=== PATIENT | male | born 2000 | race African-American/Black ===

== ENCOUNTER 2020-08-24 06:47 | Emergency (ER) | payer BC, SELFPAY ==
--- NOTE | ~2020-08-24 | XR_ITS ---
EXAMINATION: XR chest 1V portable DATE: 08/24/2020 07:34 INDICATION: Cough. TECHNIQUE: A single frontal view of the chest was obtained on 2 radiographs. COMPARISON: Chest 2 views 04/02/2019 FINDINGS: The chest demonstrates clear lungs without pneumonia, pleural effusion, or pneumothorax. Th e heart size is normal. IMPRESSION: 1. No acute cardiopulmonary disease. Reviewed, dictated and finalized at location [facility]
[2020-08-24 06:51] VITALS: BP 115/76; PULSE 96; RESP 16; TEMP 36.9; O2SAT 96
[2020-08-24 06:56] VITALS: O2SAT 99
--- NOTE | 2020-08-24 07:32 | ED.URI ---
HPI - URI/Sore Throat General Chief Complaint: Upper Respiratory Infection Stated Complaint: cough and sore throat Time Seen by Provider: 08/24/20 06:58 Source: patient Mode of arrival: ambulatory Limitations: no limitations History of Present Illness HPI Narrative: This is a 19 year old male who presents for evaluation of URI symptoms. He states he developed a sore throat 1 day ago. He has pain with swallowing. He also reports a productive cough with yellow sputum. He has also noticed clear nasal drainage and pain across his chest only when he coughs. He denies fever, chills, sob, nausea, vomiting or diarrhea. He has not taken any medication. He denies sick contacts. MD elicited complaint: cough Onset (ago): day(s) (1) Description of mucous: yellow Able to tolerate fluids by mouth: Yes Treatments prior to arrival: none Related Data Home Medications Medication Instructions Recorded Confirmed No Home Medications 08/24/20 Allergies Allergy/AdvReac Type Severity Reaction Status Date / Time No Known Allergies Allergy Verified 08/24/20 07:26 Review of Systems Review of Systems: All systems reviewed & are unremarkable except as noted in HPI and below Constitutional: Constitutional: Denies chills and Denies fever(s) ENT: Reports nasal congestion and Reports sore throat Cardiovascular: Cardiovascular: Reports chest pain (only when he coughs) and Denies radiating jaw, neck or arm pain Respiratory: Respiratory: Reports cough and Denies dyspnea Gastrointestinal: Gastrointestinal: Denies abdominal pain, Denies diarrhea, Denies nausea and Denies vomiting PMFSH Past Medical History Medical History (Updated 08/24/20 @ 07:59 by Argentina Vega MD) Patient denies medical problems Surgical History Surgical History (Updated 08/24/20 @ 07:33 by Argentina Vega MD) History of tonsillectomy Social History Social History (Updated 08/24/20 @ 07:34 by Argentina Vega MD) Smoking status: Never smoker Substance use type: marijuana Exam Narrative: Exam Narrative: GENERAL: Well-appearing, well-nourished, and in no acute distress. HEAD: Normocephalic, atraumatic EYES: PERRLA and EOMI, conjunctiva clear without discharge EARS: TM's clear bilaterally without erythema or dullness NOSE: Nares clear, no rhinorrhea or epistaxis THROAT:Mucous membranes moist, Oropharynx normal without erythema, exudate, peritonsillar swelling or fluctuance NECK: Supple, without lymphadenopathy or mass RESPIRATORY: No respiratory distress, Airway patent, Respirations non-labored, Clear to auscultation without rales, rhonchi or wheeze HEART: Regular rate and rhythm. No murmur heard. Normal peripheral pulses. ABDOMEN: Soft, nontender, nondistended, normal active bowel sounds. No masses. No rebound or guarding, No organomegaly. EXTREMITIES: No edema, normal strength with full range of motion. SKIN: Warm, dry, normal color without rash NEURO: Alert and oriented x3. CN 2-12 grossly intact. No focal deficits. PSYCH: Normal mood and affect. Course Reevaluation(s) Reevaluation #1: I discussed with patient test are unremarkable at this point. I discussed signs to look for to return. If has been swabbed for COVID so he understands he will need to quarantine. Date: 08/24/20 Time: 07:56 Vital Signs Vital signs: Vital Signs Temperature 98.5 F 08/24/20 06:51 Pulse Rate 96 08/24/20 06:51 Respiratory Rate 16 08/24/20 06:51 Blood Pressure 115/76 08/24/20 06:51 Pulse Oximetry 96 08/24/20 06:51 Temperature 98.5 F 08/24/20 06:51 Pulse Rate 87 08/24/20 08:03 Respiratory Rate 18 08/24/20 08:03 Blood Pressure 121/69 08/24/20 08:03 Pulse Oximetry 98 08/24/20 08:03 MDM - URI/Sore Throat Lab Data Labs: Lab Results 08/24/20 Range/Units 07:36 SARS-CoV-2 RNA (RT-PCR) Pending Influenza A Screen Negative
[2020-08-24 08:03] VITALS: BP 121/69; PULSE 87; RESP 18; O2SAT 98
[2020-08-24 19:08] LABS: SARS-CoV-2 RNA PCR Negative
== END 2020-08-24 08:05 | disposition home or self-care (01) ==
PROVIDERS: Emergency Provider General Practice; PCP Family Medicine
DX: J06.9 Acute upper respiratory infection, unspecified (principal); Z20.822 Contact with and (suspected) exposure to COVID-19
CPT/HCPCS: 71045; 87081; 87804; 87880; 99283; C9803; U0003; U0005

== ENCOUNTER 2021-06-15 00:52 | Emergency (ER) | payer BC, SELFPAY ==
[2021-06-15] VITALS (7 sets, daily range): BP systolic 120–134; BP diastolic 57–89; PULSE 78–84; RESP 18; TEMP 37.1; O2SAT 97–99
--- NOTE | 2021-06-15 03:44 | ED.GENADULT ---
HPI - General Adult General Chief complaint: Unspecified Stated complaint: chills, bodyaches, vomiting Time Seen by Provider: 06/15/21 03:35 Source: patient Mode of arrival: ambulatory Limitations: no limitations History of Present Illness HPI narrative: Patient is a 20-year-old male complaining of body aches, nausea, nasal congestion, sore throat, headache that started today. Patient denies any fever, chest pain, shortness of breath, abdominal pain, diarrhea or rash. Patient denies being vaccinated from Covid. Patient denies any sick contacts. Related Data Home Medications Medication Instructions Recorded Confirmed No Home Medications 06/15/21 06/15/21 Allergies Allergy/AdvReac Type Severity Reaction Status Date / Time No Known Allergies Allergy Verified 06/15/21 03:35 Review of Systems Review of Systems: All systems reviewed & are unremarkable except as noted in HPI and below Constitutional: Constitutional: Denies chills, Denies excessive sweating, Denies fatigue, Denies fever(s), Denies headache(s), Denies lethargy, Denies malaise, Denies weakness and Denies weight loss Eyes: Eyes: Denies blurry vision, Denies change in vision and Denies loss of vision ENT: Denies dizziness, Denies ear discharge, Denies headache(s), Denies lip swelling, Denies epistaxis, Denies neck pain, Denies throat swelling and Denies tongue swelling Cardiovascular: Cardiovascular: Denies chest pain, Denies chest pain at rest, Denies chest pain with activity, Denies diaphoresis, Denies rapid heart rate, Denies edema, Denies irregular heart rhythm, Denies lightheadedness, Denies palpitations, Denies dyspnea and Denies dyspnea on exertion Respiratory: Respiratory: Denies chest congestion, Denies hemoptysis, Denies dyspnea and Denies dyspnea on exertion Gastrointestinal: Gastrointestinal: Denies abdominal pain, Denies melena, Denies hematochezia, Denies diarrhea, Denies nausea, Denies vomiting and Denies hematemesis Musculoskeletal: Musculoskeletal: Denies abnormal gait, Denies deformity, Denies joint swelling, Denies limited range of motion, Denies neck pain and Denies numbness Neurologic: Denies Abnormal speech present, Denies abnormal gait, Denies confusion, Denies dizziness, Denies focal weakness, Denies loss of vision, Denies numbness, Denies Other visual disturbances, Denies Sensory deficit (Neuro) and Denies weakness Psychiatric: Psychiatric: Denies confusion, Denies depression, Denies auditory hallucinations, Denies homicidal ideation and Denies suicidal ideation Endocrine: Endocrine: Denies cold intolerance, Denies excessive sweating, Denies fatigue, Denies heat intolerance and Denies palpitations Hematologic/Lymphatic: Hematologic/Lymphatic: Denies easy bleeding and Denies easy bruising Allergic/Immunologic: Allergic/Immunologic: Denies lip swelling, Denies throat swelling and Denies tongue swelling PMFSH Past Medical History Medical History Patient denies medical problems Surgical History Surgical History History of tonsillectomy Social History Social History Smoking status: Never smoker Substance use type: marijuana Exam Const: General: cooperative, healthy appearing, comfortable, no acute distress, well developed, alert and awake; No confusion Orientation/consciousness: oriented to person, oriented to place, oriented to time, patient oriented x3 and No confusion Limitations: no limitations HENMT: Head: normal to inspection, normocephalic and atraumatic Ears: hearing grossly normal bilaterally, TM normal on the right and TM normal on the left General nose exam: Normal external nose present, Normal nares present and No nasal discharge present Face and sinus: normal facial exam Mouth: Yes Normal oral and palatal mucosa present, Yes lip normal, Yes tongu
[2021-06-15] MEDS: KETOROLAC (*BKC) 60 MG/2 ML VIAL IM (04:14)
== END 2021-06-15 05:00 | disposition home or self-care (01) ==
PROVIDERS: Emergency Provider Emergency Medicine
DX: B34.9 Viral infection, unspecified (principal)
CPT/HCPCS: 96372; 99283; J1885

== ENCOUNTER 2021-09-21 16:47 | Emergency (ER) | payer BC, SELFPAY ==
[2021-09-21 16:55] VITALS: BP 136/75; PULSE 70; RESP 16; TEMP 36.7; O2SAT 99
--- NOTE | 2021-09-21 17:19 | ED.URI ---
HPI - URI/Sore Throat General Chief Complaint: Upper Respiratory Infection Stated Complaint: sob/cp Time Seen by Provider: 09/21/21 17:19 Source: patient Mode of arrival: ambulatory Limitations: no limitations History of Present Illness HPI Narrative: 20-year-old male presents with complaint of dry cough for 1 week. Reports that cough is worse at night and also when working. 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 He reports shortness of breath only when having a coughing fit. Does hear some wheezing at bedtime. Also reports some intermittent runny nose, headaches and congestion. No shortness of breath or chest pain at this time. Afebrile. All systems reviewed and negative except as noted above. Related Data Allergies Allergy/AdvReac Type Severity Reaction Status Date / Time No Known Allergies Allergy Verified 06/15/21 03:35 Review of Systems Review of Systems: CONSTITUTIONAL: Denies fever, chills, or sweats. EYES: Denies visual changes, redness, or discharge. ENT: Reports rhinorrhea, congestion. Denies sore throat, or otalgia. CARDIOVASCULAR: Denies chest pain, palpitations, or edema. RESPIRATORY: Reports cough. Denies dyspnea. GASTROINTESTINAL: Denies abdominal pain, nausea, vomiting, or diarrhea. GENITOURINARY: Denies dysuria or hematuria. SKIN: Denies rash or itching. MUSCULOSKELETAL: Denies back pain, joint pain, or myalgia. NEUROLOGIC: Reports headache. Denies numbness, or weakness. PSYCHIATRIC: Denies anxiety or depression. All other systems reviewed are negative, except as documented in HPI. PMFSH Past Medical History Medical History Patient denies medical problems Surgical History Surgical History History of tonsillectomy Social History Social History Smoking status: Never smoker Substance use type: marijuana Comments At time of signature, agree with nursing past medical, surgical, social and family history. There is no relevant family history pertinent to the presenting complaint. Exam Narrative: GENERAL: This is a well-nourished, well-developed patient, in no apparent distress. HEAD: normocephalic, atraumatic. EYES: PERRL. Sclera clear/white. Vision is grossly intact. EARS: External ears normal, auditory canals clear and without drainage, TMs normal without perforation. Hearing grossly intact. NOSE: External nose normal with clear nasal drainage noted, mild erythema to nares. THROAT: Mucous membranes moist, no erythema to posterior pharynx but there is clear postnasal drainage. NECK: Neck supple, non-tender without lymphadenopathy, masses or thyromegaly. CARDIOVASCULAR: Regular rate and rhythm without murmurs, gallops, or rubs. RESPIRATORY: Clear to auscultation. Breath sounds equal bilaterally. No wheezes, rales, or rhonchi. SKIN: warm, Dry, intact with no suspicious lesions or rash, good texture and turgor. NEURO: awake, alert, and oriented to person, place and time. There were no obvious focal neurologic abnormalities. EXTREMITIES: No joint tenderness, effusion, or edema noted. No calf tenderness. Negative Homans sign bilaterally. BACK: Nontender without deformity. No CVA tenderness. Course Course Level of Care: Express Care Visit Vital Signs Vital signs: Vital Signs Temperature 36.7 C 09/21/21 16:55 Pulse Rate 70 09/21/21 16:55 Respiratory Rate 16 09/21/21 16:55 Blood Pressure 136/75 09/21/21 16:55 Pulse Oximetry 99 09/21/21 16:55 Temperature 36.7 C 09/21/21 16:55 Pulse Rate 70 09/21/21 16:55 Respiratory Rate 16 09/21/21 16:55 Blood Pressure 136/75 09/21/21 16:55 Pulse Oximetry 99 09/21/21 16:55 Reviewed MDM - URI/Sore Throat MDM Narrative Medical decision making narrative: Patient is aware of diagnosis, understands and agrees to treatment plan
== END 2021-09-21 17:37 | disposition home or self-care (01) ==
PROVIDERS: Emergency Provider Nurse Practitioner Family
DX: J30.2 Other seasonal allergic rhinitis (principal); R05.9 Cough, unspecified
CPT/HCPCS: 99213; G0463

== ENCOUNTER 2022-06-18 18:13 | Emergency (ER) | payer BC, SELFPAY ==
[2022-06-18 18:25] VITALS: BP 148/62; PULSE 93; RESP 20; TEMP 37.1; O2SAT 97
--- NOTE | 2022-06-18 19:20 | PC.NURSE ---
Report received from KRYSTAL Degroot. Assumed care of patient at this time.
[2022-06-18 19:29] LABS: Strep Group A RT-PCR NOT DETECTED (Negative)
[2022-06-18 19:49] LABS: Influenza A QL RT-PCR Negative (Negative); Influenza B QL RT-PCR Negative (Negative); Monoscreen Negative (Negative); Negative Monotest Control Negative (Negative); Positive Monotest Control Positive (Positive); RSV RNA, RT-PCR Negative (Negative); SARS-CoV-2 RNA PCR Negative
--- NOTE | 2022-06-18 20:02 | ED.URI ---
HPI - URI/Sore Throat General Chief Complaint: Upper Respiratory Infection Stated Complaint: sore throat, headache Time Seen by Provider: 06/18/22 18:22 History of Present Illness HPI Narrative: 21-year-old nontoxic looking male presents to the emergency room for evaluation of a sore throat, sinus congestion, postnasal drip and headache. States symptoms of been present for 3 days.'s been taking ibuprofen intermittently. States his fevers been like 100 . Patient denies any body aches. States symptoms are worse at night. Related Data Allergies Allergy/AdvReac Type Severity Reaction Status Date / Time No Known Allergies Allergy Verified 06/18/22 18:58 Review of Systems Review of Systems: CONSTITUTIONAL: Denies fever, chills, or sweats. EYES: Denies visual changes, redness, or discharge. ENT: Reports sinus congestion, sore throat CARDIOVASCULAR: Denies chest pain, palpitations, or edema. RESPIRATORY: Reports nocturnal cough GASTROINTESTINAL: Denies abdominal pain, nausea, vomiting, or diarrhea. GENITOURINARY: Denies dysuria or hematuria. SKIN: Denies rash or itching. MUSCULOSKELETAL: Denies back pain, joint pain, or myalgia. NEUROLOGIC: Denies headache, numbness, dizziness, or weakness. PSYCHIATRIC: Denies anxiety or depression. PMFSH Past Medical History Medical History Patient denies medical problems Surgical History Surgical History History of tonsillectomy Social History Social History Smoking status: Never smoker Substance use type: marijuana Exam Narrative: GENERAL: Well-appearing, well-nourished, no physical limitations, and in no acute distress. HEAD: Normocephalic, atraumatic. EYES: Conjunctivae normal, PERRLA and EOMI. ENT: External nose normal, Nares clear, no rhinorrhea or epistaxis. Mucous membranes moist. Oropharynx without tonsillar hypertrophy exudate or other lesions. External ears normal, bilateral TMs normal bilaterally NECK: Supple. No adenopathy or masses. CHEST: Clear to auscultation. No respiratory distress. No wheezes rales or rhonchi. HEART: Regular rate and rhythm. No murmur heard. Normal peripheral pulses. ABDOMEN: Soft, nontender, nondistended, normal active bowel sounds. EXTREMITIES: Normal range of motion. No edema. No clubbing or cyanosis SKIN: Warm, dry, no rash. No noted wounds NEURO: No focal deficits. Alert and oriented x3. MAEW. CN's II-XI intact bilaterally, normal gait PSYCH: Cooperative. Normal mood and affect. Course Vital Signs Vital signs: Vital Signs Temperature 37.1 C 06/18/22 18:25 Pulse Rate 93 06/18/22 18:25 Respiratory Rate 20 06/18/22 18:25 Blood Pressure 148/62 H 06/18/22 18:25 Pulse Oximetry 97 06/18/22 18:25 Oxygen Delivery Room Air 06/18/22 18:25 Temperature 37.1 C 06/18/22 18:25 Pulse Rate 93 06/18/22 18:25 Respiratory Rate 20 06/18/22 18:25 Blood Pressure 148/62 H 06/18/22 18:25 Pulse Oximetry 97 06/18/22 18:25 Oxygen Delivery Room Air 06/18/22 18:56 MDM - URI/Sore Throat Lab Data Labs: Lab Results 06/18/22 06/18/22 06/18/22 Range/Units 19:01 19:07 19:07 Monoscreen Negative (Negative) Influenza A (RT-PCR) Negative (Negative) Influenza B (RT-PCR) Negative (Negative) RSV (RT-PCR) Negative (Negative) SARS-CoV-2 RNA (RT-PCR) Negative Group A Strep (PCR) Not detected (Negative) Discharge Plan Discharge Clinical Impression: Upper respiratory infection Patient Disposition: Home, Self-Care Condition: Stable Instructions: Antibiotic Form, Viral Syndrome (ED), Cold Symptoms (ED) Additional Instructions: Recommend taking Tylenol, ibuprofen, Flonase and Mucinex DM for her symptoms. You have a viral upper respiratory infection that will resolve within 7 to 10 days. Prescriptio
== END 2022-06-18 20:20 | disposition home or self-care (01) ==
PROVIDERS: Emergency Provider Nurse Practitioner Family
DX: J06.9 Acute upper respiratory infection, unspecified (principal); Z20.822 Contact with and (suspected) exposure to COVID-19
CPT/HCPCS: 36415; 86308; 87637; 87651; 96372; 99283

== ENCOUNTER 2022-06-27 12:56 | Emergency (ER) | payer BC, SELFPAY ==
--- NOTE | 2022-06-27 12:58 | ED.EXTPRO ---
HPI - Extremity Problem General Chief complaint: Extremity Injury, Upper Stated complaint: swelling in left middle finger Time Seen by Provider: 06/27/22 12:57 Source: patient Mode of arrival: ambulatory Limitations: no limitations History of Present Illness HPI Narrative: Javier is a 21-year-old male patient presenting to clinic today with complaints of swelling in his left 3rd finger x1 week. He reports he did get some pus coming out of the left 3rd lateral finger. He is concerned that it may be infected. Related Data Allergies Allergy/AdvReac Type Severity Reaction Status Date / Time No Known Allergies Allergy Verified 06/27/22 12:59 Review of Systems Review of Systems: Pertinent positives per HPI. Patient denies any fever, chills, rash, headache, visual changes, dizziness, cough, runny nose, sore throat, shortness of breath, chest pain, palpitations, nausea, vomiting, diarrhea, constipation, abdominal pain, or any urinary issues. PMFSH Past Medical History Medical History Patient denies medical problems Surgical History Surgical History History of tonsillectomy Social History Social History Smoking status: Never smoker Substance use type: marijuana Comments At the time of my signature, I reviewed and agree with the nursing past medical, surgical, social, and family history. There is no relevant family history pertinent to the patient complaint. Exam Narrative: General: Well-developed, well nourished, in no apparent distress Head: Normocephalic, atraumatic. Cardio: Regular rate and rhythm, s1 and s2 normal, no murmur appreciated. Resp: Clear to auscultation bilaterally, no rhonchi, rales, wheezing or rubs. Integumentary: [place], warm, and dry, redness and swelling to the left 3rd lateral finger with yellow discharge noted along the fingernail. Tender to palpation with mild induration and without palpable abscess Course Course Emergency Course: Portions of this record may have been created with voice recognition software. Level of Care: Express Care Visit Vital Signs Vital signs: Vital Signs Temperature 37.1 C 06/27/22 13:03 Pulse Rate 65 06/27/22 13:03 Respiratory Rate 16 06/27/22 13:03 Blood Pressure 126/62 06/27/22 13:03 Pulse Oximetry 100 06/27/22 13:03 Oxygen Delivery Room Air 06/27/22 13:03 Temperature 37.1 C 06/27/22 13:03 Pulse Rate 65 06/27/22 13:03 Respiratory Rate 16 06/27/22 13:03 Blood Pressure 126/62 06/27/22 13:03 Pulse Oximetry 100 06/27/22 13:03 Oxygen Delivery Room Air 06/27/22 13:03 Vital signs reviewed MDM - Extremity (Nontraumatic) MDM Narrative Medical decision making narrative: At the time of the patient is resting comfortably on the exam table. I suspect patient has an infected ingrown fingernail of the left 3rd digit. Prescription for Bactrim was sent to the pharmacy. Supportive measures were discussed with the patient he voiced understanding of discharge instructions agrees to treatment plan. Discharge Plan Discharge Clinical Impression: Ingrowing nail with infection Patient Disposition: Home, Self-Care Condition: Stable Instructions: Antibiotic Form, Ingrown Nail (ED) Additional Instructions: Keep area clean and dry May soak in warm water with Epsom salts- 4 times daily May take Tylenol/ Motrin as needed for pain Follow-up with your PCP in 3-5 days if symptoms persist or sooner if they worsen Prescriptions: New sulfamethoxazole-trimethoprim [Bactrim DS] 800-160 mg tablet 1 tablet PO Q12H Qty: 14 0RF No Action pseudoephedrine HCl [Sudafed] 30 mg tablet 30 mg PO Q4-6H PRN (Reason: nasal congestion) Qty: 30 0RF Rx Instructions: DNExceed 4 doses/24h Follow-up/Referrals: PHYSICIAN,ON [place]
[2022-06-27 13:03] VITALS: BP 126/62; PULSE 65; RESP 16; TEMP 37.1; O2SAT 100
== END 2022-06-27 13:12 | disposition home or self-care (01) ==
PROVIDERS: Emergency Provider Nurse Practitioner Family
DX: L60.0 Ingrowing nail (principal); F12.90 Cannabis use, unspecified, uncomplicated
CPT/HCPCS: 99213; G0463

== ENCOUNTER 2022-09-30 09:32 | Emergency (ER) | payer BC, SELFPAY ==
--- NOTE | 2022-09-30 09:39 | ED.URI ---
HPI - URI/Sore Throat General Chief Complaint: Upper Respiratory Infection Stated Complaint: swelling tongue/sore throat Time Seen by Provider: 09/30/22 09:39 Source: patient, RN notes reviewed and old records reviewed Mode of arrival: ambulatory Limitations: no limitations History of Present Illness HPI Narrative: 21 year old male presents to the [facility] with a sore throat since yesterday, states it feels like the back of his throat and tongue are swollen. Pain with swallowing. Unknown fever. No treatment prior to arrival Patient maintaining 1 secretions. Onset (ago): day(s) (1) Related Data Allergies Allergy/AdvReac Type Severity Reaction Status Date / Time No Known Allergies Allergy Verified 09/30/22 09:53 Review of Systems Review of Systems: All systems reviewed & are unremarkable except as noted in HPI and below Constitutional: Constitutional: Reports no additional constitutional complaints Eyes: Eyes: Reports no additional eye complaints ENT: Reports as per HPI, Reports sore throat and Reports throat swelling Cardiovascular: Cardiovascular: Reports no additional cardiovascular complaints, Denies chest pain and Denies dyspnea Respiratory: Respiratory: Reports no additional respiratory complaints, Denies chest congestion, Denies cough and Denies dyspnea Gastrointestinal: Gastrointestinal: Reports no additional gastrointestinal complaints, Denies abdominal pain, Denies nausea and Denies vomiting Musculoskeletal: Musculoskeletal: Reports no additional musculoskeletal complaints Integumentary/Breasts: Skin/Breast: Reports system reviewed and no additional complaints, except as docu Neurologic: Reports system reviewed and no additional complaints, except as documented Psychiatric: Psychiatric: Reports no additional psychiatric complaints Allergic/Immunologic: Allergic/Immunologic: Reports no additional allergic/immunologic complaints PMFSH Past Medical History Medical History Patient denies medical problems Surgical History Surgical History History of tonsillectomy Social History Social History Smoking status: Never smoker Substance use type: marijuana Comments At the time of my signature, I reviewed and agree with the nursing past medical, surgical, social, and family history. There is no relevant family history pertinent to the patient complaint. Exam Const: General: cooperative, healthy appearing, comfortable, no acute distress, well developed, alert and well nourished Nutritional Appearance: well nourished Orientation/consciousness: patient oriented x3 Limitations: no limitations HENMT: Head: normal to inspection Ears: hearing grossly normal bilaterally and external ears normal Face/Nose/Sinus: Normal external nose present, Normal nares present, Normal nasal mucous membranes and turbinates present and normal facial exam Face and sinus: normal facial exam Mouth: Yes Normal oral and palatal mucosa present, Yes lip normal and Yes moist mucous membranes Throat: uvula midline, posterior oropharynx abnormal erythema; no exudates and postnasal drainage Eyes: General: appearance normal, both eyes and all related structures Alignment and Position: alignment normal Periorbital: periorbital findings normal Conjunctivae: conjunctivae normal Pupils: Equal, round and reactive pupils present EOM: EOMs intact bilaterally Neck: Neck: normal visual inspection, full ROM, no lymphadenopathy and no meningeal signs Chest: Chest palpation & inspection: normal inspection of the chest Resp: Effort & Inspection: normal respiratory effort and able to speak in complete sentences Auscultation: clear to auscultation bilaterally, no crackles, no rales, no rhonchi and no wheezes Cardio: Rate: regular rate Rhythm: regular rhythm Back/Spine/Pelvis: Cer
[2022-09-30 09:49] VITALS: BP 118/61; PULSE 70; RESP 18; TEMP 36.9; O2SAT 100
== END 2022-09-30 10:43 | disposition home or self-care (01) ==
PROVIDERS: Emergency Provider Nurse Practitioner
DX: J02.0 Streptococcal pharyngitis (principal)
CPT/HCPCS: 87880; 99213; G0463

== ENCOUNTER 2022-10-30 16:15 | Emergency (ER) | payer SELFPAY ==
--- NOTE | ~2022-10-30 | XR_ITS ---
XR ankle LT min 3V 10/30/2022 16:39 INDICATION: Left ankle pain after injury PROCEDURE: 5 views left ankle COMPARISON: No prior studies for comparison. FINDINGS: Fracture, dislocation or subluxation is not identified. Ankle mortise intact. Talar dome is normal. The soft tissues appear within normal limits. No foreign bodies are identified. IMPRESSION: 1: NO ACUTE BONE OR JOINT ABNORMALITY IDENTIFIED. Reviewed, dictated and finalized at location B.
[2022-10-30 16:24] VITALS: BP 113/60; PULSE 73; RESP 16; TEMP 37.4; O2SAT 100
--- NOTE | 2022-10-30 16:43 | ED.GENADULT ---
HPI - General Adult General Chief complaint: Extremity Injury, Lower Stated complaint: Lower Left Injury Time Seen by Provider: 10/30/22 16:40 Source: patient, RN notes reviewed and old records reviewed Mode of arrival: ambulatory Limitations: no limitations History of Present Illness HPI narrative: 21-year-old male presents to the [facility] with lateral left ankle pain worse in the morning. Walks with a normal gait. No known injury. Related Data Home Medications Medication Instructions Recorded Confirmed No Home Medications 10/30/22 10/30/22 Allergies Allergy/AdvReac Type Severity Reaction Status Date / Time No Known Allergies Allergy Verified 10/30/22 16:20 Review of Systems Review of Systems: All systems reviewed & are unremarkable except as noted in HPI and below Constitutional: Constitutional: Reports no additional constitutional complaints Eyes: Eyes: Reports no additional eye complaints ENT: Reports system reviewed and no additional complaints, except as documented Cardiovascular: Cardiovascular: Reports no additional cardiovascular complaints, Denies chest pain and Denies dyspnea Respiratory: Respiratory: Reports no additional respiratory complaints, Denies chest congestion, Denies cough and Denies dyspnea Gastrointestinal: Gastrointestinal: Reports no additional gastrointestinal complaints, Denies abdominal pain, Denies nausea and Denies vomiting Musculoskeletal: Musculoskeletal: Reports as per HPI Integumentary/Breasts: Skin/Breast: Reports system reviewed and no additional complaints, except as docu Neurologic: Reports system reviewed and no additional complaints, except as documented Psychiatric: Psychiatric: Reports no additional psychiatric complaints Allergic/Immunologic: Allergic/Immunologic: Reports no additional allergic/immunologic complaints PMFSH Past Medical History Medical History Patient denies medical problems Surgical History Surgical History History of tonsillectomy Social History Social History Smoking status: Never smoker Substance use type: marijuana Comments At the time of my signature, I reviewed and agree with the nursing past medical, surgical, social, and family history. There is no relevant family history pertinent to the patient complaint. Exam Const: General: cooperative, healthy appearing, comfortable, no acute distress, well developed, alert and well nourished Nutritional Appearance: well nourished Orientation/consciousness: patient oriented x3 Limitations: no limitations HENMT: Head: normal to inspection Ears: hearing grossly normal bilaterally and external ears normal Face/Nose/Sinus: Normal external nose present, Normal nares present, Normal nasal mucous membranes and turbinates present and normal facial exam Face and sinus: normal facial exam Eyes: General: appearance normal, both eyes and all related structures Alignment and Position: alignment normal Periorbital: periorbital findings normal Conjunctivae: conjunctivae normal Pupils: Equal, round and reactive pupils present EOM: EOMs intact bilaterally Neck: Neck: normal visual inspection, full ROM, no lymphadenopathy and no meningeal signs Chest: Chest palpation & inspection: normal inspection of the chest Resp: Effort & Inspection: normal respiratory effort and able to speak in complete sentences Cardio: Rate: regular rate Rhythm: regular rhythm Back/Spine/Pelvis: Cervical Spine: cervical ROM normal Thoracic/Lumbar Spine: No thoracic spinal tenderness Skin: General skin exam: normal color and no rashes or lesions noted Lesions: no lesions Rashes: no rashes Wounds: no wounds Neuro: General: patient oriented x3, gait normal, tone normal, moves all extremities and no meningeal signs Cranial nerves: Yes Equal, roun
== END 2022-10-30 16:55 | disposition home or self-care (01) ==
PROVIDERS: Emergency Provider Nurse Practitioner
DX: S93.402A Sprain of unspecified ligament of left ankle, initial encounter (principal); S96.912A Strain of unspecified muscle and tendon at ankle and foot level, left foot, initial encounter; X58.XXXA Exposure to other specified factors, initial encounter; F12.90 Cannabis use, unspecified, uncomplicated
CPT/HCPCS: 73610; 99213; G0463

== ENCOUNTER 2022-12-14 14:57 | Emergency (ER) | payer SELFPAY ==
[2022-12-14 15:03] VITALS: BP 122/65; PULSE 82; RESP 18; TEMP 36.6; O2SAT 98
--- NOTE | 2022-12-14 16:30 | ED.EAR ---
HPI - Ear Problem General Chief complaint: Ear Stated complaint: left ear pain and fullness Time Seen by Provider: 12/14/22 15:54 History of Present Illness HPI Narrative: 22-year-old male reports for evaluation for a clogged left ear x1 week. Patient states he feels like his hearing is at 60% and feels like his ear is clogged. He denies ear pain unless he sneezes. Denies sore throat, cough, congestion, fever, ear drainage. He states he used ear cleaning drops yesterday. Related Data Home Medications Medication Instructions Recorded Confirmed No Home Medications 10/30/22 10/30/22 Allergies Allergy/AdvReac Type Severity Reaction Status Date / Time No Known Allergies Allergy Verified 10/30/22 16:20 Review of Systems Review of Systems: CONSTITUTIONAL: Denies fever, chills EYES: Denies visual changes, redness, or discharge. ENT: See HPI CARDIOVASCULAR: Denies chest pain, palpitations, or edema. RESPIRATORY: Denies cough or dyspnea. GASTROINTESTINAL: Denies abdominal pain, nausea, vomiting, or diarrhea. GENITOURINARY: Denies dysuria or hematuria. SKIN: Denies rash or itching. MUSCULOSKELETAL: Denies back pain, joint pain, or myalgia. NEUROLOGIC: Denies headache, numbness, dizziness, or weakness. PSYCHIATRIC: Denies anxiety or depression. [facility] Past Medical History Medical History Patient denies medical problems Surgical History Surgical History History of tonsillectomy Social History Social History Smoking status: Never smoker Substance use type: marijuana Exam Narrative: GENERAL: Well-appearing, in no acute distress. HEAD: Normocephalic ENT: Nares clear. Mucous membranes moist. Oropharynx without tonsillar hypertrophy exudate or other lesions. Right TM is vela nonbulging, no canal abnormalities. Left canal with cerumen impaction. No pain with movement of pinna, no mastoid tenderness. NECK: Supple. CHEST: No respiratory distress. Clear to auscultation, no adventitious breath sounds. HEART: Regular rate and rhythm. No murmur heard. Normal peripheral pulses. EXTREMITIES: Normal range of motion. No edema. SKIN: Warm, dry, no rash. NEURO: No focal deficits. Alert and oriented x3. PSYCH: Normal mood and affect. Course Vital Signs Vital signs: Vital Signs Temperature 97.9 F 12/14/22 15:03 Pulse Rate 82 12/14/22 15:03 Respiratory Rate 18 12/14/22 15:03 Blood Pressure 122/65 12/14/22 15:03 Pulse Oximetry 98 12/14/22 15:03 Oxygen Delivery Room Air 12/14/22 15:03 Temperature 97.9 F 12/14/22 15:03 Pulse Rate 82 12/14/22 15:03 Respiratory Rate 18 12/14/22 15:03 Blood Pressure 122/65 12/14/22 15:03 Pulse Oximetry 98 12/14/22 15:03 Oxygen Delivery Room Air 12/14/22 15:03 Medical Decision Making MDM Narrative Medical decision making narrative: 22-year-old male reports for evaluation for a clogged left ear x1 week. Vital stable. Exam reveals cerumen impaction of the left ear. Ear irrigated with successful removal of cerumen. Upon reevaluation, the TM is intact, vela and nonbulging. Canals normal. Patient reports significant improvement in symptoms. Plan to discharge home with PCP follow-up within a week. Referral provided. Strict ED return precautions discussed. Patient agrees with plan verbalized understanding. Discharged in stable condition peer Medical Records Medical records reviewed: Yes I reviewed the external patient's medical records. Vital Signs Vital Signs: Vital Signs Temperature 97.9 F 12/14/22 15:03 Pulse Rate 82 12/14/22 15:03 Respiratory Rate 18 12/14/22 15:03 Blood Pressure 122/65 12/14/22 15:03 Pulse Oximetry 98 12/14/22 15:03 Oxygen Delivery Room Air 12/14/22 15:03 Temperature 97.9 F 12/14/22 15:03 Pul
== END 2022-12-14 18:25 | disposition home or self-care (01) ==
PROVIDERS: Emergency Provider Physician Assistant
DX: H61.22 Impacted cerumen, left ear (principal)
CPT/HCPCS: 69209; 99282

== ENCOUNTER 2024-01-08 14:11 | Emergency (ER) | payer SELFPAY ==
[2024-01-08 14:19] VITALS: BP 132/70; PULSE 54; RESP 16; TEMP 37.2; O2SAT 99
--- NOTE | 2024-01-08 14:39 | ED.URI ---
HPI - URI/Sore Throat General Chief Complaint: Upper Respiratory Infection Stated Complaint: Headache/Sore Throat History of Present Illness HPI Narrative: Patient presents with complaints of headache and sore throat that began this morning. He is requesting a work note. He denies any runny nose. He denies any fever, chills, sweats. Denies cough. Related Data Home Medications Medication Instructions Recorded Confirmed No Home Medications 10/30/22 10/30/22 Allergies Allergy/AdvReac Type Severity Reaction Status Date / Time No Known Allergies Allergy Verified 01/08/24 14:12 Review of Systems Review of Systems: All systems reviewed & are unremarkable except as noted in HPI and below Constitutional: Constitutional: Reports no additional constitutional complaints ENT: Reports system reviewed and no additional complaints, except as documented and Reports as per HPI Cardiovascular: Cardiovascular: Reports no additional cardiovascular complaints Respiratory: Respiratory: Reports no additional respiratory complaints Gastrointestinal: Gastrointestinal: Reports no additional gastrointestinal complaints PMFSH Past Medical History Medical History Patient denies medical problems Surgical History Surgical History History of tonsillectomy Social History Social History Smoking status: Never smoker Substance use type: marijuana Exam Const: General: cooperative, no acute distress, alert and awake Orientation/consciousness: oriented to person, oriented to place and oriented to time HENMT: Head: normal to inspection Ears: TM's normal bilaterally Neck: Lymphatic: lymphadenopathy not noted Resp: Effort & Inspection: normal respiratory effort and able to speak in complete sentences Auscultation: clear to auscultation bilaterally, no crackles, no rales, no rhonchi and no wheezes Cardio: Palpation: normal PMI Rate: regular rate Rhythm: regular rhythm Heart sounds: S1 normal heart sound present and S2 normal heart sound present Neuro: General: oriented to person, oriented to place and oriented to time Cranial nerves: Yes CN's II-XII intact bilaterally Psych: Appearance: grossly normal Thought process: Normal thought process present Insight: Good insight present (Psych) Judgement: Good judgement present (Psych) Course Course Level of Care: Express Care Visit Vital Signs Vital signs: Vital Signs Temperature 99.0 F 01/08/24 14:19 Pulse Rate 54 L 01/08/24 14:19 Respiratory Rate 16 01/08/24 14:19 Blood Pressure 132/70 01/08/24 14:19 Pulse Oximetry 99 01/08/24 14:19 Oxygen Delivery Room Air 01/08/24 14:19 Temperature 99.0 F 01/08/24 14:19 Pulse Rate 54 L 01/08/24 14:19 Respiratory Rate 16 01/08/24 14:19 Blood Pressure 132/70 01/08/24 14:19 Pulse Oximetry 99 01/08/24 14:19 Oxygen Delivery Room Air 01/08/24 14:19 MDM - URI/Sore Throat MDM Narrative Medical decision making narrative: Completely unremarkable physical exam. Negative strep. Culture sent. Advised patient to push fluids. [id number] analgesics per package instructions. Work note for today. Follow up with primary care provider. Emergency department for new or worse symptoms Medical Records Attestation: I reviewed the patient's medical records. Discharge Plan Discharge Clinical Impression: Acute sore throat Patient Disposition: Home, Self-Care Condition: Stable Instructions: Pharyngitis (ED) Additional Instructions: Plenty of rest and fluids. You may take Tylenol and or ibuprofen per package instructions. Emergency department for new or worsening symptoms Patient Language: Tongan Prescriptions: No Action No Home Medications Follow-up/Referrals: PHYSICIAN,BANKRUPTCY JUDGE [Primary Care Pro
[2024-01-08 14:40] LABS: EDSTREPNEGPOS1 Presumptive Negative
== END 2024-01-08 14:55 | disposition home or self-care (01) ==
PROVIDERS: Emergency Provider Nurse Practitioner Family
DX: J02.9 Acute pharyngitis, unspecified (principal)
CPT/HCPCS: 87081; 87880; 99213; G0463